=== PATIENT | female | born 1960 | race Caucasian/White ===

== ENCOUNTER 2018-03-31 10:40 | Emergency (ER) | payer OTHER ==
[~2018-03-31] VITALS: Ht 162.6 cm; Wt 97.1 kg
[~2018-03-31 10:40] MED LIST: GLUMETZA500 MG PO; IBUPROFEN400 MG PO
[2018-03-31] MEDS ORDERED: FLUOXETINE HCL20 MG PO (11:02)
[2018-03-31] MEDS ORDERED: NOVOLIN 70100 UNIT/1 SUB-Q (11:02)
[2018-03-31] MEDS ORDERED: SIMVASTATIN40 MG PO (11:02)
[2018-03-31] MEDS ORDERED: TRAZODONE HCL100 MG PO (11:03)
[2018-03-31] MEDS ORDERED: LOSARTAN-HCTZ1 EAC2 PO (11:03)
[2018-03-31] MEDS ORDERED: METFORMIN HCL1000 MG PO (11:03)
[2018-03-31] MEDS ORDERED: ACTOS30 MG PO (11:04)
== END 2018-03-31 11:08 | disposition home or self-care (01) ==
LOC: ED 10:40
DX: S50.11XA Contusion of right forearm, initial encounter (principal); W19.XXXA Unspecified fall, initial encounter

== ENCOUNTER 2022-11-06 09:44 | Emergency (ER) | payer OTHER ==
[~2022-11-06] VITALS: Ht 162.6 cm; Wt 97.1 kg
[~2022-11-06 09:44] MED LIST changes: +ACTOS30 MG PO; +FLUOXETINE HCL20 MG PO; +LOSARTAN-HCTZ1 EAC2 PO; +METFORMIN HCL1000 MG PO; +NOVOLIN 70100 UNIT/1 SUB-Q; +SIMVASTATIN40 MG PO; +TRAZODONE HCL100 MG PO
[2022-11-06] MEDS ORDERED: CEFPODOXIME PR100 MG PO (12:32)
[2022-11-06 12:40] VITALS: BP 136/56
== END 2022-11-06 12:40 | disposition home or self-care (01) ==
LOC: ED 09:44
DX: N39.0 Urinary tract infection, site not specified (principal); E11.9 Type 2 diabetes mellitus without complications; I10 Essential (primary) hypertension; Z88.8 Allergy status to other drugs, medicaments and biological substances; Z79.899 Other long term (current) drug therapy; Z79.4 Long term (current) use of insulin
CPT/HCPCS: 36415; 80053; 81001; 82010; 82803; 85025; 99283

== ENCOUNTER 2023-12-30 10:08 | Emergency (ER) | payer OTHER ==
[~2023-12-30] VITALS: Ht 162.6 cm; Wt 96.2 kg
[~2023-12-30 10:08] MED LIST changes: +CEFPODOXIME PR100 MG PO; +ESCITALOPRAM OX20 MG PO; +GLIPIZIDE5 MG PO; +LOSARTAN POTASS50 MG PO; +OXYCODONE HCL5 MG PO; +OZEMPIC1 MG/0.71 SQ; +ROPINIROLE HCL1 MG PO
[2023-12-30] MEDS ORDERED: TIZANIDINE HCL2 MG PO (10:18)
[2023-12-30] MEDS ORDERED: HYDROCODON-ACE1 EA10 PO (11:03)
[2023-12-30 11:08] VITALS: BP 151/80
== END 2023-12-30 11:08 | disposition home or self-care (01) ==
LOC: ED 10:08
DX: S86.912A Strain of unspecified muscle(s) and tendon(s) at lower leg level, left leg, initial encounter (principal); I10 Essential (primary) hypertension; E11.9 Type 2 diabetes mellitus without complications; E78.00 Pure hypercholesterolemia, unspecified; X58.XXXA Exposure to other specified factors, initial encounter; Z79.4 Long term (current) use of insulin; Z79.899 Other long term (current) drug therapy; Z88.8 Allergy status to other drugs, medicaments and biological substances
CPT/HCPCS: 73560; 99283